=== PATIENT | female | born 1980 | race Caucasian/White ===

== ENCOUNTER 2017-12-03 09:09 | Emergency (ER) | payer BC ==
[~2017-12-03] VITALS: Ht 170.2 cm; Wt 81.7 kg
[~2017-12-03 09:09] MED LIST: AMOXICILLIN/POTASSIU; AMOXICILLIN500 M1 PO; BUSPIRONE HCL10 MG PO; CIPROFLOXACIN500 M1 PO; FLAGYL500 MG PO; HYDROCODON-ACE1 EAC7 PO; HYDROCODONE-AP1 EAC6 PO; NORCO 5-325 TA1 EACH PO; PERCOCET 10-321 EACH PO; PREDNISONE; PROTONIX40 M1 PO; PROTONIX40 M2 PO; PROZAC 20 MG20 MG; TESSALON200 MG PO; VENTOLIN17 GM; WELLBUTRIN SR150 MG PO; ZOFRAN 4 MG ORAL4 M1 DIS; ZPAK PO
[2017-12-03] MEDS ORDERED: ADVAIR HFA 230M12 GM INH (09:19)
[2017-12-03 10:03] LABS: HEMATOCRIT 41.4 % (37.0-47.0); HEMOGLOBIN 14.3 gm/dL (12.0-15.0); MCH 31.7 pg (26.0-34.0); MCHC 34.4 g/dL (28.0-37.0); MCV 92.2 fL (80.0-100.0); MPV 8.5 fl. (7.2-11.1); NUCLEATED RBCS 0 /100WBC; PLATELET COUNT* 170 thou/uL (150-400); RBC 4.49 mil/uL (4.20-5.00); RDW-CV 13.8 % (10.5-14.5); WBC 10.7 thou/uL (4.0-11.0)
[2017-12-03 10:19] LABS: CALCIUM 8.5 mg/dL (8.5-10.1); CREATININE 0.6 mg/dL (0.6-1.3); POTASSIUM 3.7 mmol/L (3.5-5.1)
[2017-12-03 10:24] LABS: ALBUMIN 3.9 g/dL (3.4-5.0); TOTAL BILIRUBIN 0.5 mg/dL (<0.1-1.0); TOTAL PROTEIN 7.4 g/dL (6.4-8.2)
[2017-12-03 10:33] LABS: ABSOLUTE BASOPHILS 0.1 thou/uL (0.0-0.2); ABSOLUTE LYMPHOCYTES 1.4 thou/uL (0.8-5.3); ABSOLUTE MONOCYTES 0.6 thou/uL (0.0-1.2); ABSOLUTE NEUTROPHILS 8.6 thou/uL (1.6-8.1)
[2017-12-03 10:34] LABS: PLATELET ESTIMATE ADEQUATE
[2017-12-03] MEDS ORDERED: PREDNISONE 20 M20 M1 PO (10:43)
[2017-12-03] MEDS ORDERED: VENTOLIN HFA 1818 GM INH (10:43)
[2017-12-03 11:01] VITALS: BP 137/94
[2018-03-19] MEDS ORDERED: PROTONIX 20 MG20 M1 PO (11:01)
== END 2017-12-03 11:01 | disposition home or self-care (01) ==
LOC: M.ERS 09:09
PROVIDERS: Family Medicine
DX: R05 Cough (principal); K21.9 Gastro-esophageal reflux disease without esophagitis; F41.9 Anxiety disorder, unspecified

== ENCOUNTER 2018-03-19 10:34 | Inpatient (IN) | payer BC ==
[~2018-03-19] VITALS: Ht 170.2 cm; Wt 81.6 kg
[~2018-03-19 10:34] MED LIST changes: +ADVAIR HFA 230M12 GM INH; +PREDNISONE 20 M20 M1 PO; +VENTOLIN HFA 1818 GM INH
[2018-03-19 10:54] LABS: URINE BILIRUBIN NEGATIVE (Negative); URINE BLOOD 2+ (Negative); URINE CLARITY CLEAR; URINE COLOR YELLOW; URINE GLUCOSE-RANDOM NEGATIVE (Negative); URINE KETONES NEGATIVE (Negative); URINE LEUKOCYTES 1+ (Negative); URINE NITRITE NEGATIVE (Negative); URINE PROTEIN NEGATIVE (Negative); URINE UROBILINOGEN 0.2 E.U./dl (0.2-1.0)
[2018-03-19 10:59] VITALS: BP 132/87
[2018-03-19 11:01] LABS: ABSOLUTE BASOPHILS 0.1 thou/uL (0.0-0.2); ABSOLUTE EOSINOPHILS 0.1 thou/uL (0.0-0.7); ABSOLUTE LYMPHOCYTES 1.7 thou/uL (0.8-5.3); ABSOLUTE NEUTROPHILS 11.4 thou/uL (1.6-8.1); BASOPHILS 0.6 %; EOSINOPHILS 0.5 %; HEMATOCRIT 44.1 % (37.0-47.0); HEMOGLOBIN 15.1 gm/dL (12.0-15.0); LYMPHOCYTES 11.7 %; MCH 31.8 pg (26.0-34.0); MCHC 34.3 g/dL (28.0-37.0); MCV 92.7 fL (80.0-100.0); MONOCYTES 7.1 %; MPV 8.8 fl. (7.2-11.1); NUCLEATED RBCS 0 /100WBC; PLATELET COUNT* 184 thou/uL (150-400); POLYS 80.1 %; RBC 4.76 mil/uL (4.20-5.00); WBC 14.2 thou/uL (4.0-11.0)
[2018-03-19] MEDS ORDERED: BUSPIRONE HCL10 MG PO (11:01)
[2018-03-19] MEDS ORDERED: PROTONIX 20 MG20 M1 PO ×2 (11:01)
[2018-03-19 11:05] LABS: BACTERIA 1-9 Few /HPF (None Seen); CASTS None Seen /LPF (None Seen); CRYSTALS None Seen /LPF (None Seen); MUCUS None Seen strn/LPF (None Seen); SQUAMOUS >10 Many /LPF (0-3); URINE RBC 3-10 Few /HPF (0-2); URINE WBC 0-5 Rare /HPF (0-5)
[2018-03-19 11:10] LABS: CALCIUM 8.7 mg/dL (8.5-10.1); CREATININE 0.6 mg/dL (0.6-1.3); POTASSIUM 4.1 mmol/L (3.5-5.1)
[2018-03-19 11:14] LABS: ALBUMIN 3.7 g/dL (3.4-5.0); TOTAL BILIRUBIN 0.5 mg/dL (<0.1-1.0); TOTAL PROTEIN 7.6 g/dL (6.4-8.2)
[2018-03-19 17:15] VITALS: BP 108/71
[2018-03-19 18:20] VITALS: BP 130/78
[2018-03-19 18:39] VITALS: BP 130/78
--- NOTE | 2018-03-19 19:21 | NUR ---
PATIENT ADMITTED TO ROOM 318 VIA CART FROM ER AT 1835. PATIENT'S ADMISSION COMPLETED. IV FLUIDS INFUSING. ORIENTED TO ROOM AND ENVIRONMENT. DR RUIZ INTO ASSESS PATIENT. CALL LIGHT WITHIN REACH. WILL CONTINUE WITH PLAN OF CARE.
[2018-03-20 01:33] VITALS: BP 117/73
[2018-03-20 04:23] LABS: HEMATOCRIT 38.3 % (37.0-47.0); MCH 31.9 pg (26.0-34.0); MCHC 33.5 g/dL (28.0-37.0); MCV 95.4 fL (80.0-100.0); MPV 9.4 fl. (7.2-11.1); RBC 4.01 mil/uL (4.20-5.00); RDW-CV 13.1 % (10.5-14.5); WBC 9.9 thou/uL (4.0-11.0)
[2018-03-20 04:37] LABS: HEMOGLOBIN 12.8 gm/dL (12.0-15.0)
--- NOTE | 2018-03-20 05:51 | NUR ---
PT SLEPT FAIRLY WELL OVERNIGHT. UP WITH SBA TO BR TO VOID WITHOUT DIFFICULTY. AOX4, ABLE TO USE CALL LITE AND MAKE NEEDS KNOWN. STEADY GAIT. RAC IVF INFUSING PER PUMP, ABX GIVEN ORDERED. MORPHINE NOT ADEQUATE FOR PAIN RELIEF, DR NOTIFIED AND FENTANYL ORDERED-GIVEN WITH GOOD RESULT OF ABD PAIN CONTROL. TOLERATING SMALL AMOUNT CLEARS WITHOUT EMESIS. AM LABS DRAWN.
[2018-03-20 08:40] VITALS: BP 104/63
[2018-03-20 16:00] VITALS: BP 122/76
--- NOTE | 2018-03-20 16:56 | NUR ---
SW met with pt to complete initial assessment, introduce self, and SW role. Pt alert, oriented. Pt says she is independent at home and does not anticipate any dc needs. SW to continue to follow to assist with safe dc planning.
--- NOTE | 2018-03-20 17:34 | NUR ---
PATIENT HAS BEEN A/O X 4 THIS SHIFT. CONTINUES TO HAVE LLQ ABD PAIN, MEDICATED WITH FENTANYL WITH PARTIAL RELIEF. IV FLUIDS CONTINUE TO INFUSE. IV RESTARTED THIS AFTERNOON. UP AD LORRIE IN ROOM. GI CONSULTED. ORDERS NOTED FOR STOOL SAMPLE AND PATIENT INFORMED OF THE ABOVE. PATIENT ON CLEAR LIQUID DIET. WBC TRENDING DOWN. HOURLY ROUNDING COMPLETED. CALL LIGHT WITHIN REACH. WILL CONTINUE WITH PLAN OF CARE.
[2018-03-21 00:05] VITALS: BP 115/78
--- NOTE | 2018-03-21 05:37 | NUR ---
PT SLEPT WELL OVERNIGHT SHE STATES. RECEIVING IV PAIN AND NAUSEA MEDS TWICE THIS SHIFT. IVF INFUSING PER PUMP, ABX GIVEN ORDERED. PT UP AD LORRIE TO BR TO VOID, NO BM. VS WNL. ABLE TO USE CALL LITE AND MAKE NEEDS KNOWN. PT STATES SHE HOPES TO HAVE HER DIET ADVANCED TODAY. TOLERATING CLEARS WITHOUT N/V.
[2018-03-21 09:15] VITALS: BP 107/68
[2018-03-21 16:20] VITALS: BP 130/85
--- NOTE | 2018-03-21 20:02 | NUR ---
PATIENT HAS BEEN A/O X 4 THIS SHIFT. PATIENT HAS DENIED NAUSEA THIS SHIFT. PATIENT MEDICATED FOR ABD PAIN WITH ORAL PAIN MEDS WITH GOOD RELIEF. IV FLUIDS SALINE LOCKED, CONTINUES ON IV ANTIBIOTICS. PATIENT'S DIET ADVANCED TO FULL LIQUIDS AND TOLERATING. PATIENT UP AD LORRIE IN ROOM AND AMBULATING IN HALLS THIS SHIFT. HOPEFUL TO BE DISCHARGED SOON. HOURLY ROUNDING COMPLETED. CALL LIGHT WITHIN REACH. WILL CONTINUE WITH PLAN OF CARE.
[2018-03-21 23:42] VITALS: BP 119/84
[2018-03-22 04:48] LABS: CALCIUM 8.5 mg/dL (8.5-10.1); CREATININE 0.7 mg/dL (0.6-1.3); MAGNESIUM 2.1 mg/dL (1.8-2.4)
--- NOTE | 2018-03-22 05:31 | NUR ---
ASSESSMENT COMPLETE. PT SLEPT THROUGH THE NIGHT WITHOUT ANY CONCERNS. PT GIVEN PRN HYDROCODONE TWICE DURING THE NIGHT FOR ABDOMINAL PAIN. PT DENIES N/V. PT IS ON ROOM AIR WITH [place] SATS. PT IS UP AD LORRIE WITH STEADY GAIT. SEE ASSESSMENT AND VITALS FOR OTHER DETAILS. CALL LIGHT WITHIN REACH, WILL CONTINUE PLAN OF CARE
[2018-03-22 08:00] VITALS: BP 99/56
[2018-03-22] MEDS ORDERED: FLAGYL500 MG PO (10:49)
[2018-03-22] MEDS ORDERED: CIPRO250 M2 PO (10:49)
[2018-03-22] MEDS ORDERED: BENTYL 10 MG CA10 M1 PO (10:49)
[2018-03-22 11:05] VITALS: BP 99/56
--- NOTE | 2018-03-22 13:10 | NUR ---
DISCHARGE NOTE - PT DISCHARGED FROM [facility]. 4 RX'S GIVEN. TOLERATING PO ABX/PO PAIN MEDS/MEALS WELL. REVIEWED INSTRUCTIONS. NO QUESTIONS. IV REMOVED. ALL BELONGINGS SENT WITH PT.
== END 2018-03-22 13:10 | disposition home or self-care (01) | DRG 372 ==
LOC: M.ERS 10:34 → M.3W 13:31 → M.TBA-ER 13:31 → M.3W 18:24
PROVIDERS: Internal Medicine; Nurse Practitioner Family; ADMIT Internal Medicine
DX: A04.9 Bacterial intestinal infection, unspecified (principal); R65.10 Systemic inflammatory response syndrome (SIRS) of non-infectious origin without acute organ dysfunction; K21.9 Gastro-esophageal reflux disease without esophagitis; F41.9 Anxiety disorder, unspecified; F32.9 Major depressive disorder, single episode, unspecified; D72.829 Elevated white blood cell count, unspecified; F17.210 Nicotine dependence, cigarettes, uncomplicated; Z79.899 Other long term (current) drug therapy